=== PATIENT | female | born 1945 | race Caucasian/White ===

== ENCOUNTER 2024-02-16 11:27 | Emergency (ER) | payer MEDICARE, SELFPAY ==
[2024-02-16 11:39] VITALS: BP 151/57; PULSE 68; RESP 16; TEMP 36.5; O2SAT 97
--- NOTE | 2024-02-16 11:43 | PC.NURSE ---
Had a negative covid test this am
--- NOTE | 2024-02-16 11:55 | ED.GENADULT ---
HPI - General Adult General Chief complaint: Upper Respiratory Infection Stated complaint: Cough/Runny Nose Source: patient Mode of arrival: ambulatory Limitations: no limitations History of Present Illness HPI narrative: Patient presents for evaluation of sick symptoms the past 3 days. Symptoms include sinus congestion, clear rhinorrhea, scratchy throat, an occasional cough and diarrhea. No fever, chills, nausea, vomiting. No recent sick contacts to her knowledge but she works in an assisted living facility. She takes allergy medication regularly but is not taking anything currently for her symptoms. She took a COVID test yesterday which was negative. Related Data Home Medications Medication Instructions Recorded Confirmed amlodipine 5 mg tablet mg 02/16/24 anastrozole 1 mg tablet mg 02/16/24 atorvastatin 40 mg tablet mg 02/16/24 hydrocodone 5 mg-acetaminophen 325 tablet 02/16/24 mg tablet lisinopril 40 mg tablet mg 02/16/24 metformin 500 mg tablet mg 02/16/24 metoprolol tartrate 50 mg tablet mg 02/16/24 Allergies Allergy/AdvReac Type Severity Reaction Status Date / Time AMOXICILLIN TRIHYDRATE Allergy Unknown Uncoded 03/24/14 15:47 POTASSIUM CLAVULANATE Allergy Unknown Uncoded 03/24/14 15:47 Review of Systems Review of Systems: CONSTITUTIONAL: Denies fever, chills, or sweats. EYES: Denies visual changes, redness, or discharge. ENT: Reports sinus congestion, clear rhinorrhea, scratchy throat. CARDIOVASCULAR: Denies chest pain, palpitations, or edema. RESPIRATORY: Reports occasional cough. Denies shortness of breath. GASTROINTESTINAL: Reports diarrhea. Denies abdominal pain, nausea, vomiting GENITOURINARY: Denies dysuria or hematuria. SKIN: Denies rash or itching. MUSCULOSKELETAL: Denies back pain, joint pain, or myalgia. NEUROLOGIC: Denies headache, numbness, dizziness, or weakness. PSYCHIATRIC: Denies anxiety or depression. [facility] Past Medical History Medical History Diabetes Hyperlipidemia Hypertension Surgical History Surgical History History of repair of rotator cuff Family History Family History Mother Family history non-contributory Social History Social History Substance use: never Gender identity (if verbalized by the patient): Female Spiritual care concerns: No Exam Narrative: GENERAL: Well-appearing, well-nourished, and in no acute distress. HEAD: Normocephalic, atraumatic. EYES: PERRLA and EOMI. ENT: Nares clear, no rhinorrhea or epistaxis. Mucous membranes moist. Oropharynx without tonsillar hypertrophy exudate or other lesions. Bilateral TMs pearly bae nonbulging NECK: Supple. No adenopathy or masses. No carotid bruits or JVD CHEST: Occasional cough on exam. Clear to auscultation. No respiratory distress. No wheezes rales or rhonchi HEART: Regular rate and rhythm. No murmur heard. Normal peripheral pulses. ABDOMEN: Soft, nontender, nondistended, normal active bowel sounds. EXTREMITIES: Normal range of motion. No edema. SKIN: Warm, dry, no rash. NEURO: No focal deficits. Alert and oriented x3. PSYCH: Normal mood and affect. Course Course Emergency Course: This is an 78-year-old female who presented for evaluation of sick symptoms. She took a home COVID test which was negative. Flu test here negative. Exam is consistent with acute viral syndrome. Rysf-non-riueilk agents for symptom management. Encouraged hydration. Follow up with primary provider. Go to the ER for worsening symptoms. Patient in agreement with plan of care. Level of Care: Express Care Visit Vital Signs Vital signs: Vital Signs Temperature 36.5 C 02/16/24 11:39 Pulse Rate 68 02/16/24 11:39 Respiratory Rate 16 02/16/24 11:
[2024-02-16 12:14] LABS: EDINFLUASCREEN Negative; EDINFLUBSCREEN Negative
== END 2024-02-16 12:57 | disposition home or self-care (01) ==
PROVIDERS: Emergency Provider Nurse Practitioner
DX: B34.9 Viral infection, unspecified (principal); E11.9 Type 2 diabetes mellitus without complications; E78.5 Hyperlipidemia, unspecified; I10 Essential (primary) hypertension
CPT/HCPCS: 87804; 99203; G0463